=== PATIENT | female | born 1960 | race Caucasian/White ===

== ENCOUNTER 2016-04-24 09:34 | Emergency (ER) | payer OTHER ==
[~2016-04-24] VITALS: Wt 82.0 kg
[2016-04-24 10:56] LABS: BASOPHILS % 0.5 % (0.0-2.0); EOSINOPHILS # 0.1 10^3/ul (0.0-0.5); EOSINOPHILS % 0.9 % (0.0-7.0); HEMATOCRIT 39.8 % (37.0-47.0); HEMOGLOBIN 13.5 g/dl (12.0-16.0); LYMPHOCYTES # 1.9 10^3/ul (0.8-2.9); LYMPHOCYTES % 33.4 % (15.0-51.0); MEAN CORPUSCULAR HEMOGLOBIN 31.6 pg (29.0-33.0); MEAN CORPUSCULAR HGB CONC 33.9 g/dl (32.0-37.0); MEAN CORPUSCULAR VOLUME 93.2 fl (82.0-101.0); MEAN PLATELET VOLUME 12.1 fl (7.4-10.4); MONOCYTE # 0.4 10^3/ul (0.3-0.9); MONOCYTES % 6.8 % (0.0-11.0); NEUTROPHIL # 3.4 10^3/ul (1.6-7.5); NEUTROPHILS % 58.4 % (39.0-77.0); PLATELET COUNT 184 10^3/UL (140-440); RED BLOOD COUNT 4.28 10^6/ul (4.20-5.40); RED CELL DISTRIBUTION WIDTH 13.1 % (11.5-14.5); UNCORRECTED WBC 5.8 10^3/ul (4.8-10.8); WHITE BLOOD COUNT 5.8 10^3/ul (4.8-10.8)
[2016-04-24 11:02] LABS: ALBUMIN 4.2 g/dl (3.3-4.9)
[2016-04-24 11:04] LABS: ALKALINE PHOSPHATASE 98 IU/L (42-121); ASPARTATE AMINO TRANSFERASE 31 IU/L (15-46); BILIRUBIN,INDIRECT 0.4 mg/dl (0-1.1); BILIRUBIN,TOTAL 0.4 mg/dl (0.2-1.3); TOTAL PROTEIN 7.1 g/dl (6.1-8.1)
[2016-04-24 11:05] LABS: ALANINE AMINOTRANSFERASE 30 IU/L (13-69)
[2016-04-24 11:36] LABS: CONDITION 1
--- NOTE | 2016-04-24 13:33 | ERD ---
ER Documentation Chief Complaint Date/Time DATE: 04/24/16 TIME: 13:30 Chief Complaint r index finger needlestick while at work . emptying trash HPI Patient is a 48-year-old female with no medical problems who presents with a needlestick. 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 She was stuck by a needle she was taking out the trash and it started bleeding. This was on her right second digit. It happened at 8: 35 AM. She washed the finger for 3 minutes with soap and water and then used alcohol hand wash. ROS All systems reviewed and are negative except as per history of present illness. Allergies Allergies: Coded Allergies: No Known Allergy (Unverified , 04/24/16) PMhx/Soc Medical and Surgical Hx: pt denies Medical Hx, pt denies Surgical Hx Hx Alcohol Use: No Hx Substance Use: No Hx Tobacco Use: No FmHx Family History: diabetes Physical Exam Vitals Vital Signs Date Time Temp Pulse Resp B/P Pulse Ox O2 Delivery O2 Flow Rate FiO2 04/24/16 09:39 98.5 77 20 139/84 98 Physical Exam Const: No acute distress Head: Atraumatic Eyes: Normal Conjunctiva ENT: Normal External Ears, Nose and Mouth. Neck: Full range of motion..~ No meningismus. Resp: Clear to auscultation bilaterally Cardio: Regular rate and rhythm, no murmurs Abd: Soft, non tender, non distended. Normal bowel sounds Skin: No petechiae or rashes, no wound is seen on the right second finger, I cannot visualize any entry point at this time Back: No midline or flank tenderness Ext: No cyanosis, or edema Neur: Awake and alert Psych: Normal Mood and Affect Result Diagram: 04/24/16 1026 Results 24 hrs Laboratory Tests Test 04/24/16 10:26 Alanine Aminotransferase (ALT/SGPT) 30IU/L Albumin 4.2g/dl Alkaline Phosphatase 98IU/L Aspartate Amino Transf (AST/SGOT) 31IU/L Basophils # 0.010^3/ul Basophils % 0.5% Blood Morphology Comment Direct Bilirubin 0.00mg/dl Eosinophils # 0.110^3/ul Eosinophils % 0.9% HIV (1&2) Antibody Pending Hematocrit 39.8% Hemoglobin 13.5g/dl Indirect Bilirubin 0.4mg/dl Lymphocytes # 1.910^3/ul Lymphocytes % 33.4% Mean Corpuscular Hemoglobin 31.6pg Mean Corpuscular Hemoglobin Concent 33.9g/dl Mean Corpuscular Volume 93.2fl Mean Platelet Volume 12.1fl Monocytes # 0.410^3/ul Monocytes % 6.8% Neutrophils # 3.410^3/ul Neutrophils % 58.4% Nucleated Red Blood Cells # 0.010^3/ul Nucleated Red Blood Cells % 0.0/100WBC Platelet Count 71882^3/UL Red Blood Count 4.2810^6/ul Red Cell Distribution Width 13.1% Total Bilirubin 0.4mg/dl Total Protein 7.1g/dl White Blood Count 5.810^3/ul Procedures/MDM Patient is a 48-year-old female who 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 This was in a trash bag she says. The patient was stuck on the right second digit but I do not see any signs of injury at this time. However she does say that she was bleeding and therefore they are most likely was some injury. However given the low risk nature of this stick we have discussed giving prophylactic medications at this time she feels like she would hold off. Her laboratory studies both CBC and LFTs are normal. HIV screen is pending at this time. She also had hepatitis B and hepatitis C antigens drawn. She will likely need to follow-up with occupational health within the next few months to see if she would convert. Departure Diagnosis: Primary Impression: Needlestick injury accident Encounter type: initial encounter Qualified Code: W27.3XXA - Needlestick injury accident, initial encounter Condition: Fair Patient Instructions: Standard Precautions: [place] Referrals: Occupational Health Additional Instructions: Follow up with Occupational Health as directed. DEDE SHUKLA MD Apr 24, 2016 13:32
== END 2016-04-24 11:30 | disposition home or self-care (01) ==
LOC: FTE 09:34
DX: S61.230A Puncture wound without foreign body of right index finger without damage to nail, initial encounter (principal); W46.1XXA Contact with contaminated hypodermic needle, initial encounter; Y92.239 Unspecified place in hospital as the place of occurrence of the external cause
CPT/HCPCS: 36415; 80076; 85025; 86703; 86706; 86803; 87340; 99283